=== PATIENT | male | born 1955 | race Caucasian/White ===

== ENCOUNTER 2017-06-09 09:45 | Outpatient (CLI) ==
--- NOTE | 2017-06-09 10:07 | DI ---
EXAM: Two views of the chest. History: Cough, history smoking Comparison: Chest radiograph 09/30/2011 Findings: Heart size is normal. No focal consolidation. No appreciable pleural fluid and no pneumo thorax. Calcified granuloma again seen within the right lung. No acute osseous abnormalities. Impression: No acute cardiopulmonary process
== END 2017-06-09 09:46 | disposition home or self-care (01) ==
LOC: RAD 09:45
PROVIDERS: ATTEND Internal Medicine
DX: R05 Cough (principal); F17.210 Nicotine dependence, cigarettes, uncomplicated